=== PATIENT | male | born 1945 | race Caucasian/White ===

== ENCOUNTER 2024-05-20 00:29 | Inpatient (IN) | payer OTHER, SELFPAY ==
[2024-05-19] VITALS (10 sets, daily range): BP systolic 73–175; BP diastolic 34–105; BMI 26.7
[2024-05-19 22:23] LABS: % Basophils 0.8 % (0-2); % Eosinophils 2.9 % (0-6); % Immature Granulocytes 0.4 % (0-0.5); % Lymphocytes 24.5 % (20.5-51.1); % Monocytes 13.1 % (1.7-9.3); % Neutrophils 58.3 % (42.2-75.2); Absolute Basophils 0.1 10^3/uL (0-0.2); Absolute Eosinophils 0.2 10^3/uL (0-0.7); Absolute Lymphocytes 1.9 10^3/uL (1.2-3.4); Absolute Neutrophils 4.6 10^3/uL (1.4-6.5); Hematocrit 49.9 % (39.0-52.0); Hemoglobin 16.8 g/dL (13.0-18.0); Mean Corp Hgb Conc. 33.7 g/dL (33.0-37.0); Mean Corpuscular Hgb 29.5 pg (27.0-31.0); Mean Corpuscular Volume 87.5 fL (80.0-94.0); Mean Platelet Volume 8.5 fL (7.4-10.4); Nucleated Red Blood Cells % 0 % (-); Platelet Count 231 10^3/uL (130-400); Red Cell Dist. Width 12.9 % (11.5-14.5); White Blood Cell Count 7.9 10^3/uL (4.8-10.8)
--- NOTE | 2024-05-19 22:30 | ED.GENMED ---
History of Present Illness
General
Chief Complaint: Chest Pain
Source: patient and spouse
Exam Limitations: none
Time Seen by Provider: 05/19/24 22:13
Nursing documentation reviewed up to this point in time: agreed with
History of Present Illness
History of Present Illness:
The patient is a very pleasant 79-year-old man who has a history of hyperlipidemia and reports several days of chest tightness, cough and congestion. Patient reports he grew concerned because yesterday he noticed that the chest pain was only in the
left side of his chest and his left arm felt numb. Patient denies shortness of breath. He reports his chest tightness is dull and he rates it a 3 out of 10. Patient denies a history of hypertension and heart disease. He smoked 50 years ago.
Patient just flew back from [place] today after spending a week with family. He denies leg pain and leg swelling.
Past History
Past History
ED Past Medical History: Hypercholesterolemia
ED Past Surgical History: Other
Social History
Tobacco: Former smoker
Alcohol: None
Drug: None
Personal:
Living: with family
Employment: Retired
Family History
Family History: Other
Review of Systems
Review of Systems
Allergies reviewed?: Yes
All Other Systems: ROS reviewed and negative except as documented in HPI and ROS
Constitutional: Reports no symptoms
EENT: Reports no symptoms
Respiratory: Reports no symptoms
Cardiac: Reports chest pain
ABD/GI: Reports no symptoms
: Reports no symptoms
Musculoskeletal: Reports no symptoms
Skin: Reports no symptoms
Neurological: Reports no symptoms
Endocrine: Reports no symptoms
Hematologic/Lymphatic: Reports no symptoms
Psychiatric: Reports no symptoms
Phy Exam
Physical Exam
Physical Exam:
Physical Exam
General: no apparent distress, not acutely ill. Well appearing but slightly flushed
Neck: supple. no meningeal signs. normal psoterior pharynx
Heart: s1/s2 regular rate and rhythm, no murmur. equal radial pulses.
Lungs: no acute respiratory distress. clear bilaterally
Abdomen: normal bowel sounds. not tender. no CVAT
Neuro: alert and oriented. no focal neurological deficits
Skin: no rash
Psychiatric: well kept. interactive and cooperative
Extremities: no edema. no calf tenderness. negative homans. good distal pulses
Scores
Heart Score for Chest Pain Patients
STEMI patient?: Yes
Course
Orders/Labs/Results
Orders:
Orders
05/19/24 22:06
Electrocardiogram (*1) Urgent
Reason for Study: Chest Pain
EKG- Treatment ONCE
05/19/24 22:16
Complete Blood Count/With Diff Urgent
Comprehensive Metabolic Panel Urgent
Troponin I Urgent
Abnormal Lab Results
05/19/24
22:16
Absolute Monos (auto) 1.0 H 10^3/uL
(0.1-0.6)
Monocytes % 13.1 H %
(1.7-9.3)
05/19/24 22:16
MDM/Problems Addressed
Differential Diagnosis Includes:
STEMI, non-STEMI, pneumonia, PE
MDM/Problems Addressed:
Patient presents with acute chest pain
Chronic conditions affecting care:
Hyperlipidemia can increase the risk of acute coronary syndrome
Acute Exacerbation and/or Progression of Chronic Illness:
Patient is acutely hypertensive, however, he is anxious and has chest pain
Acute Exacerbation and/or Progression of Chronic Illness: HTN
*Pulse Oximetry
Patient hypoxic: no
*EKG
Interpreted by ED Provider?: Yes
Interpretation: abnormal
Comparison EKG: no comparison EKG present
Rate: normal
Rhythm: sinus
[place]: normal axis
Interval: normal interval
QRS Pattern: normal QRS
Ischemia: ST elevation
*Electric Installer Interpretation
Rate: normal
Interpretation: normal
Rhythm: sinus
*Critical Care Note
Total Time (30-74mins, 75-104mins- exclusive of procedures): 35 minutes of critical ca
comment:
35 minutes critical care given to patient including frequent reassessments of his chest pain and overall mental status. I also spent time speaking to cardiology and counseling the patient and
Data Reviewed
Source: patient and spouse
Patient Management
Discussion with other providers: Other (Dr. Ceja)
Escalation/DeEscalation of care consider admission/obs:
Given patient's chest pain and EKG findings of ST elevation in inferior leads, decision made to activate STEMI alert and bring patient to the [facility]
ED Attending Note
-
Portions of this chart may have been created with voice recognition software.� Occasional wrong word or��sound alike� substitutions may have occurred due to the inherent limitations of voice recognition software.
Discharge Plan
Departure
Patient Disposition: Admit
Date of Disposition: 05/19/24
Time of Disposition: 22:29
Admit to: mill laborer
Admit to doctor: Dr Butt
Presentation/result/management discussed w/ accepting MD/DO: Dr Butt
Patient with high blood pressure during this ER visit?: Yes
Condition: Fair
Discharge Problem:
STEMI
Referrals:
UNKNOWN - PT DOES,NOT KNOW [Family Provider] -
Interventions
Interventions:
*Risk Screen - Suicide Last Done: 05/19/24 22:27
*General Assessment Last Done: 05/19/24 22:27
*Neglect/Abuse Screening Last Done: 05/19/24 22:27
*ED COVID-19 Vaccine History Last Done: 05/19/24 22:27
ED- Cardiac Assessment Last Done: 05/19/24 22:28
Discharge Date and Time
Print Language: BRUNEIAN
--- NOTE | 2024-05-19 22:43 | HPS.HSE ---
Family Physician
-
Family Physician: NOT KNOW UNKNOWN - PT DOES
Chief Complaint
-
Chest Pain.
History of Present Illness
79 y/o male, recently returned from [place], presenting with chest pain for the past several days. The patient has a history of yearly pulmonary infection/irritation treated with albuterol and inhaled corticosteroids. Several days ago, he
began coughing and has had had intermittent chest pain. He believed this was the onset of his typical pulmonary syndrome and began treating with albuterol. His chest pain worsened and has become more persistent and now left sided. Because his
chest discomfort would not subside, he presented to ER. EKG in the ER is consistent with inferior STEMI. cheesemaking laborer was activated.
Medical History
Past Medical History
Past Medical History: Reports Asthma (Pulmonary syndrome.)
Past Surgical History: Reports Other (Hernia repair x4.)
Social History
Tobacco: Former Smoker
Alcohol: Occasional
Drug: None
Personal:
Living: With Family
Employment: Retired
Family History
Family History: Not pertinent
Allergies / Home Medications
Allergies reflects when Allergies were last updated in [facility].
Home Medications with original date entered in [employer]
Allergy/Medication List:
Home Medications
None.
Allergies:
NKDA.
Review of Systems
-
History Source: Patient and Family
Constitutional: Reports No Symptoms
EENT: Reports No Symptoms
Respiratory: Reports Cough
Cardiac: Reports Chest Pain
Abdomen/GI: Reports No Symptoms
: Reports No Symptoms
Musculoskeletal: Reports No Symptoms
Physical Exam
Physical Exam
General: Well Developed, Well Nourished, No Apparent Distress, Comfortable, Conversant and Good Appetite
HEENT: NormoCephalic, Anicteric, Moist mucous membranes, Atraumatic, Good Dentition, PERRLA, [place] Conjunctivae, No Ptosis, Nose Appears Normal and Ears Appear Normal
Respiratory: Clear and Non Labored Respirations
Cardiac: S1/S2 and Regular Rhythm
Breast: Deferred by me
GI: Non Tender, Non Distended and Normal Bowel Sounds
Rectal: Deferred by Provider
Genito-urinary: Deferred by me
Musculoskeletal: No Clubbing, No Cyanosis and No Edema
Skin: Warm and Dry
Neuro: AO x 3, No Motor Deficits and Nonfocal/grossly intact
Hematologic/Lymphatic: No Lymphadenopathy
Psych: Calm and Intact Judgment/Insight
Laboratory Results
-
05/19/24 22:16
Data Reviewed
-
Medical Tests (Nuc Med, Echo, EKG etc): Image Personally Visualized and interpreted, Report Reviewed by me and Discussed with Physician
Lab Data: Labs Reviewed by me
Old Records: Reviewed
Impression/Plan
-
IMPRESSION/PLAN: 79 y/o otherwise healthy male presenting with chest pain and inferior ST elevation on EKG consistent with inferior STEMI.
#STEMI
-Acute.
-cheesemaking laborer activated.
-Patient received appropriate medication in ER (heparin, aspirin, ticagrelor).
-Emergent cardiac catheterization with ad hoc PCI.
-Risks/benefits explained. Consent is signed and on the chart.
-Further instructions to follow.
[2024-05-19 22:44] LABS: ALT (SGPT) 29 U/L (0-50); AST (SGOT) 33 U/L (17-59); Albumin 4.5 g/dl (3.5-5.0); Alkaline Phosphatase 60 U/L (38-126); Blood Urea Nitrogen 20 mg/dl (9-20); Calcium 9.4 mg/dl (8.4-10.2); Carbon Dioxide 25 mmol/L (22-30); Chloride 104 mmol/L (98-107); Estimated Creatinine Clearance 62 ml/min; Glucose 113 mg/dl (70-99); Potassium 4.1 mmol/L (3.5-5.1); Sodium 138 mmol/L (135-145); Total Bilirubin 0.6 mg/dl (0.2-1.3); Total Protein 7.2 g/dl (6.3-8.2); eGFR > 60.00
[2024-05-19 23:23] LABS: ACT-LR - POC 334 Seconds (116-155)
[2024-05-20] VITALS (13 sets, daily range): BP systolic 95–142; BP diastolic 55–94; BMI 26.8; BMI 26.7
[2024-05-20 00:18] LABS: ACT-LR - POC 316 Seconds (116-155)
--- NOTE | 2024-05-20 00:21 | ITS.CL.ANGIO ---
Dump Motor Operator - Angioplasty
Angioplasty
Procedure Report:
CARDIAC CATHETERIZATION REPORT
Date of Procedure: 05/19/2024
Referring: [facility] emergency room.
INDICATION: Inferior ST elevation myocardial infarction.
PROCEDURE:
1. Left heart catheterization
2. Coronary angiography.
3. Successful PCI of the proximal, mid and distal RCA.
A total of 75 minutes of procedural/moderate sedation was utilized. An independent lpn medical assistant was present to assist with and help manage the patient's level of consciousness and physiologic status.
ACCESS:
1. 6 Stateless right radial artery using a modified Seldinger technique.
CATHETERS:
1. 5 Stateless JR4.
2. 5 Stateless JL 3.5.
3. 6 Stateless JR4 guiding catheter.
HEMODYNAMIC DATA
Weight (kg): 81.6
AO (s/d/x, mmHg): 105/69/84
LV (s/x mmHg): 105/10
LEFT VENTRICULOGRAPHY: Not performed.
CORONARY ANGIOGRAPHY
Dominance: Right.
Left Main: Normal size, bifurcating vessel. There is no coronary artery disease.
LAD: Large size vessel giving rise to 3 diagonals. There is a long, 40% lesion in the proximal LAD spanning the origin of D1 and D2. There are minor luminal irregularities elsewhere.
Ramus: Congenitally absent.
Circumflex: Normal size, nondominant vessel giving rise to 2 obtuse marginals. OM1 is chronically totally occluded at its origin and fills via left to left collaterals from the distal LAD and diagonals. OM 2 is a small, 1 mm vessel.
RCA: Large size, dominant vessel with a large posterolateral arcade supplying almost the entire inferolateral and lateral wall. There are 70% lesions in the proximal LAD and again in the mid LAD. This is followed by a critical, 95% subtotal
occlusion of the distal RCA immediately proximal to the bifurcation of the RPDA and RPL with ALLYN II flow.
INTERVENTION(S)
1. Successful PCI of the 99% subtotal culprit lesion distal RCA (Medtronic [place] 3.0 x 38 RADHA, postdilated with a 3.0 NC balloon) with reduction in stenosis to 0%, restoring ALLYN-3 flow.
2. Successful PCI of the 70% mid RCA lesion (Medtronic [place] 3.0 x 18 RADHA, overlapping with the distal RCA stent, postdilated with a 3.0 NC balloon) with reduction in stenosis to 0%, maintaining ALLYN-3 flow.
3. Successful PCI of the 70% proximal RCA lesion (Medtronic [place] 3.0 x 22 RADHA, overlapping with the mid RCA stent, postdilated with a 3.5 NC balloon) with reduction in stenosis to 0%, maintaining ALLYN-3 flow.
Narrative:
The decision was made to proceed with percutaneous coronary intervention. The diagnostic catheter was removed over a wire and a 6Fr JR4 guiding catheter was advanced to the aortic root and seated in the right coronary artery. Additional heparin was
given and a Power Turn Flex wire was advanced into the distal RCA by the crux. Unfortunately, the power turn flex wire would not cross the lesion and was continuously buckling. The decision was made to proceed with a different wire. A whisper
wire was advanced with a mini microcatheter. With some difficulty, the whisper wire was advanced into the RPDA. The mini catheter was removed. The 95% distal RCA lesion was predilated with a 2.0 x 12 semi-compliant balloon to 12 lamar. This
restored ALLYN III flow and revealed that the RPL was a larger branch than the RPDA. A new power turn Flex wire was advanced into the RCA and into the RPL. The whisper wire was maintained in position to protect the RPDA. A 3.0 x 15 semicompliant
balloon was advanced over the power turn flex wire and the distal RCA around the crux was predilated to 8 lamar. The semi-compliant balloon was removed and a Medtronic [place] 3.0 x 38 drug-eluting stent was advanced. Unfortunately, this stent
would not pass into the distal artery.
The stent was removed and a 6 Stateless guide liner was advanced over both wires and into the proximal RCA. The GuideLiner was advanced over the 3.0 x 15 balloon. Unfortunately, this balloon was now winged and would not pass into the distal RCA. The
3.0 x 15 balloon was withdrawn and the 2.0 x 12 semicompliant balloon was readvanced into the distal RCA. The balloon was inflated to 12 lamar and the lesion as an anchor. Unfortunately, even with an anchor the GuideLiner would not advance beyond
the mid RCA. Pressure tracings showed pressure dampening, confirming that the proximal and mid RCA lesions were occlusive. The 2.0 x 12 semicompliant balloon was withdrawn and a fresh 3.0 x 12 semicompliant balloon was advanced into the distal RCA
lesion. The lesion was predilated again to 12 lamar. With this more aggressive balloon in place, the GuideLiner was advanced into the distal RCA with relative ease.
With the GuideLiner in place, the semicompliant balloon was deflated and the stent was readvanced. This time, the stent advanced into the RPL without issue. The GuideLiner was pulled back into the mid RCA to allow for appropriate positioning.
Once we were satisfied that the entire lesion was covered, the stent was deployed at 12 atmospheres, jailing the origin of the RPDA. The stent balloon was removed. Repeat angiography was performed, confirming that the RPDA remained patent.
We then turned our attention to the mid RCA lesion. A Medtronic [place] 3.0 x 18 RADHA was advanced through the GuideLiner and into the proximal margin of the distal stent. Once again, the GuideLiner was pulled back to allow for full stent
expansion. Meticulous care was taken while positioning the stent, ensuring that the distal margin of the undeployed stent was overlapping with the proximal margin of the distal RCA stent. When we were satisfied with positioning, the stent was
deployed at 12 lamar. The stent balloon was withdrawn.
A 3.0 x 12 noncompliant balloon was advanced into the distal stent and the entire distal and mid RCA stented segment was postdilated to 14 atmospheres.
While we were satisfied with the results in the mid and distal RCA, there was still catheter dampening on the pressure waveform and a significant, 70% lesion in the proximal RCA extending back to near the ostium but not involving the ostium. The
decision was made to treat this lesion as well. A Medtronic [place] 3.0 x 22 drug-eluting stent was advanced. Once again, we took meticulous care with positioning of the stent, ensuring good overlap with the mid RCA stent while ensuring that
the entire proximal RCA lesion was covered. The stent was deployed at 12 lamar. The stent balloon was withdrawn and the 3.0 x 12 NC balloon was advanced. The entire stent length was dilated to 14 lamar. The noncompliant balloon was withdrawn and a
3.5 x 12 noncompliant balloon was advanced. The proximal margin of the proximal stent was dilated to 15 lamar. The noncompliant balloon was removed.
Angiography was performed in orthogonal views, confirming good stent expansion and an excellent angiographic result. The coronary wire was withdrawn and the guide was disengaged from the artery. The catheter was removed over a standard J-wire.
Closure Device: Vascular band.
Radiation (mGy): 1430.44
DAP (cm2.Gy): 74.0968
Fluoroscopy time (minutes): 27.0
CONCLUSIONS
1. 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
lesions and a culprit, 95% lesion in the distal RCA immediately proximal to the bifurcation of the RPDA and RPL.
2. Status post successful PCI of the distal, mid and proximal RCA (overlapping Medtronic [place] 3.0 x 38 RADHA, 3.0 x 18 RADHA, 3.0 x 22 RADHA, postdilated with a 3.0 NC balloon throughout and a 3.5 x 12 NC balloon in the proximal margin) with
reduction in all RCA stenoses to 0%, restoring ALLYN-3 flow.
3. Normal filling pressures (LVEDP = 10 mmHg at 81.6 kg).
RECOMMENDATIONS:
1. Expectant management after cardiac catheterization via right radial approach.
2. Limited weight bearing on the right wrist for one week.
3. Dual antiplatelet therapy with aspirin and ticagrelor for at least 12 months, followed by aspirin indefinitely.
4. Aggressive secondary prevention with high-dose, high potency statin.
5. Guideline directed medical therapy as hemodynamics will tolerate.
6. Echocardiogram ordered and pending.
7. Referral to cardiac rehab.
Copy to: Nathalia Joe PA-C
Juanjose Butt DO, FACC, FACP
--- NOTE | 2024-05-20 06:34 | PTCARENOTE ---
Pt admitted to rm 2251 post cath. AAOx3 VSS. Pt denies any chest pain or SOB. Pt oriented to room, call christiansen in reach. pt instructed on restriction post cath.
[2024-05-20 06:58] LABS: Hematocrit 42.7 % (39.0-52.0); Mean Corp Hgb Conc. 35.1 g/dL (33.0-37.0); Mean Corpuscular Hgb 30.2 pg (27.0-31.0); Mean Corpuscular Volume 86.1 fL (80.0-94.0); Mean Platelet Volume 8.8 fL (7.4-10.4); Platelet Count 184 10^3/uL (130-400); Red Blood Cell Count 4.96 10^6/uL (4.70-6.10); Red Cell Dist. Width 12.8 % (11.5-14.5); White Blood Cell Count 7.6 10^3/uL (4.8-10.8)
[2024-05-20 07:17] LABS: Blood Urea Nitrogen 17 mg/dl (9-20); Calcium 8.6 mg/dl (8.4-10.2); Carbon Dioxide 21 mmol/L (22-30); Chloride 108 mmol/L (98-107); Estimated Creatinine Clearance 69 ml/min; Glucose 114 mg/dl (70-99); Sodium 139 mmol/L (135-145); eGFR > 60.00
[2024-05-20] MEDS: BRILINTA 90 MG PO ×2 (07:59→20:08)
[2024-05-20] MEDS: LOW STRENGTH ASPIRIN 81 MG PO (07:59)
[2024-05-20] MEDS: TOPROL XL 25 MG PO (08:04)
[2024-05-20 08:22] LABS: ACT-LR - POC > 397 Seconds (116-155)
--- NOTE | 2024-05-20 09:27 | W.PN.CD ---
Today's Communication / Plan
-
DAPT.
Echo.
Lipid panel pending.
Referral to cardiac rehab.
Impression / Plan
-
Impression/Plan: 79 y/o male admitted with inferior STEMI.
#STEMI
-Acute.
-Troponin up to 16.2.
-S/P PCI to culprit 95% distal RCA lesion as well as tandem 70% mid and proximal RCA lesions (overlapping Medtronic [place] 3.0 x 38 RADHA, 3.0 x 18 RADHA, 3.0 x 22 RADHA, postdilated with a 3.0 NC balloon throughout and a 3.5 x 12 NC balloon in
the proximal margin).
-DAPT with aspirin and ticagrelor for 12 months, followed by aspirin indefinitely.
-Starting metoprolol and rosuvastatin. He reports prior intolerance of atorvastatin.
-Echocardiogram ordered and pending.
-HbA1c and lipid panel pending.
-Referral to cardiac rehab.
#CAD
-Chronic.
-Residual VENEER MEASURER of OM1 and 40% pLAD lesion.
-Medical management with beta tana, high dose statin.
Subjective/Interval History:
STEMI last night.
Extensive PCI of the entire RCA.
Chest pain resolved.
Feels well this morning.
Assuming care from [facility] (remote consultation) at the request of Dr. Mtz.
DATA:
Cardiac Catheterization/PCI, 05/20/2024:
CONCLUSIONS
1. 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
lesions and a culprit, 95% lesion in the distal RCA immediately proximal to the bifurcation of the RPDA and RPL.
2. Status post successful PCI of the distal, mid and proximal RCA (overlapping Medtronic [place] 3.0 x 38 RADHA, 3.0 x 18 RADHA, 3.0 x 22 RADHA, postdilated with a 3.0 NC balloon throughout and a 3.5 x 12 NC balloon in the proximal margin) with
reduction in all RCA stenoses to 0%, restoring ALLYN-3 flow.
3. Normal filling pressures (LVEDP = 10 mmHg at 81.6 kg).
Physical Exam
Vital Signs/Labs
Vital Signs
Temp Pulse Resp BP Pulse Ox
36.5 C 66 20 95/60 97
05/20/24 07:00 05/20/24 08:15 05/20/24 07:00 05/20/24 08:00 05/20/24 08:00
05/18/24 05/19/24 05/20/24
11:59 11:59 11:59
Actual Weight 81.9 kg
05/20/24 06:19
05/20/24 06:19
LAB Results
05/19/24 05/20/24 05/20/24
22:16 00:48 06:19
Troponin I 0.030 2.780 H* D 16.200 H* D
Physical Exam
Constitutional: No acute distress and Comfortable
EENT: Anicteric and Moist mucous membranes
Cardiovascular: Rhythm & rate is regular, Pedal edema is absent, JVD pressure is normal, S1S2 is normal and Murmur/rub/gallop absent
Respiratory: Respiratory effort normal, Lungs clear to auscul., Wheeze Absent, Crackles Absent and Rhonchi Absent
GI: Soft, Distention absent, Flat, Non tender and Normal bowel sounds
Neuro/Psych: AO x 3
Other: Cath Site (Right radial access site is C/D/I.)
Data Reviewed
-
Date of Service: May 20, 2024
Medical Decision Making: Reviewed Test Results, Independent Historian Assessment and Test Interpretation
EKG: Tracing Personally Visualized and interpreted and Report Reviewed by me
Echo: Ordered by me
Medical Tests (PFT, Pathology etc): Image Personally Visualized and interpreted, Report Reviewed by me, Discussed with Physician, Discussed with Patient and Discussed with Family
Labs: Labs Reviewed by me
Old Records: Reviewed
--- NOTE | 2024-05-20 11:34 | CM ---
Chart reviewed. Patient is independent of ADLS, lives with his in a [address], 2 [address], 0 DME. Plan is for the patient to return home. CM to follow
--- NOTE | 2024-05-20 11:35 | CM ---
Pricing on Brilinta through the patient's prescription plan is $112. It is available at the patient's [facility]. Patient is agreeable to cost. I will place a free 30 day coupon in the patient's red discharge folder.
[2024-05-20 11:57] LABS: Glycohemoglobin (HgbA1c) 5.4 % (4.0-5.6)
[2024-05-20] MEDS: CRESTOR 20 MG PO (17:29)
[2024-05-20] MEDS: LOVENOX 40 MG SC (17:30)
--- NOTE | 2024-05-20 18:00 | PTCARENOTE ---
Pt received this am with no c/o of any chest pain or sob. Right rad site WNL. OOB ad gina in the room. Room air sat 98%.
[2024-05-20] MEDS: NON-FORMULARY ITEM 1 UNIT INH (22:36)
[2024-05-21 04:50] VITALS: BP 94/57
[2024-05-21 05:21] LABS: Hematocrit 44.7 % (39.0-52.0); Mean Corp Hgb Conc. 33.6 g/dL (33.0-37.0); Mean Corpuscular Volume 89.4 fL (80.0-94.0); Mean Platelet Volume 8.7 fL (7.4-10.4); Platelet Count 189 10^3/uL (130-400); Red Cell Dist. Width 13.1 % (11.5-14.5); White Blood Cell Count 7.8 10^3/uL (4.8-10.8)
--- NOTE | 2024-05-21 05:26 | PTCARENOTE ---
patient slept well overnight. denies any cp/sob. SB/SR on tele 50s-60s. ambulating to the BR independently. r radial site intact. ACS med list provided/highlighted new medications. questions answered. eager to go home. call christiansen within reach.
[2024-05-21 05:38] LABS: Blood Urea Nitrogen 17 mg/dl (9-20); Calcium 8.8 mg/dl (8.4-10.2); Carbon Dioxide 23 mmol/L (22-30); Chloride 107 mmol/L (98-107); Estimated Creatinine Clearance 62 ml/min; Glucose 102 mg/dl (70-99); HDL Cholesterol 37 mg/dl; LDL Cholesterol, Calculated 104 mg/dl; Potassium 4.2 mmol/L (3.5-5.1); Sodium 137 mmol/L (135-145); Total Cholesterol 165 mg/dl (50-199); Triglyceride 122 mg/dl (10-149); Very Low Density Lipoprotein 24 mg/dl (0-30); eGFR > 60.00
[2024-05-21 06:00] VITALS: BMI 26.8
[2024-05-21 07:40] VITALS: BP 107/62
[2024-05-21] MEDS: TOPROL XL 25 MG PO (09:16)
[2024-05-21] MEDS: BRILINTA 90 MG PO ×2 (09:17→19:32)
[2024-05-21] MEDS: LOW STRENGTH ASPIRIN 81 MG PO (09:17)
[2024-05-21] MEDS: NON-FORMULARY ITEM 1 UNIT INH (09:19)
--- NOTE | 2024-05-21 09:37 | W.PN.CD ---
Addendum entered and electronically signed by Sarkis Oh MD 05/21/24 14:00:
I saw and examined the patient.
The LIBRARY CLERK's note was reviewed and I agree with the note.
Comment: Tele good. No CP. Cath site very good. Cardiac rehab as seen pt. Med adherence discussed. Likely home tomorrow.
Original Note:
Today's Communication / Plan
-
Ambulate
Monitor tele
Consider d/c tomorrow if remains stable.
Impression / Plan
-
Impression/Plan: 79 y/o male admitted with inferior STEMI.
#STEMI
- Peak [id number].
-S/P PCI to culprit 95% distal RCA lesion as well as tandem 70% mid and proximal RCA lesions (overlapping [employer] [place] 3.0 x 38 RADHA, 3.0 x 18 RADHA, 3.0 x 22 RADHA, postdilated with a 3.0 NC balloon
throughout and a 3.5 x 12 NC balloon in the proximal margin).
-DAPT with aspirin and ticagrelor for 12 months, followed by aspirin indefinitely.
- He reports prior intolerance of atorvastatin. Rosuvastatin added here
-Echo 05/20/24 Normal biventricular size and systolic function without regional wall motion abnormality. Mild aortic regurgitation.
#CAD
-Chronic.
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
-Medical management with beta tana, high dose statin.
Subjective/Interval History:
Pt feels well. No recurrent angina . No issues with R radial site.
DATA:
Cardiac Catheterization/PCI, 05/20/2024:
CONCLUSIONS
1. 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
lesions and a culprit, 95% lesion in the distal RCA immediately proximal to the bifurcation of the RPDA and RPL.
2. Status post successful PCI of the distal, mid and proximal RCA (overlapping [employer]tr[employer] [place] 3.0 x 38 RADHA, 3.0 x 18 RADHA, 3.0 x 22 RADHA, postdilated with a 3.0 NC balloon throughout and a 3.5 x 12 NC balloon in the proximal margin) with
reduction in all RCA stenoses to 0%, restoring ALLYN-3 flow.
3. Normal filling pressures (LVEDP = 10 mmHg at 81.6 kg).
Physical Exam
Vital Signs/Labs
Vital Signs
Temp Pulse Resp BP Pulse Ox
98.4 F 73 18 107/62 95
05/21/24 07:38 05/21/24 09:16 05/21/24 07:38 05/21/24 09:16 05/21/24 07:38
05/20/24 05/21/24 05/22/24
06:59 06:59 06:59
Actual Weight 81.9 kg
05/21/24 04:51
05/21/24 04:51
Triglycerides 122 mg/dl (10-149) 05/21/24 04:51
LDL Cholesterol, Calc 104 mg/dl 05/21/24 04:51
VLDL Cholesterol, Calc 24 mg/dl (0-30) 05/21/24 04:51
HDL Cholesterol 37 mg/dl 05/21/24 04:51
LAB Results
05/19/24 05/20/24 05/20/24
22:16 00:48 06:19
Troponin I 0.030 2.780 H* D 16.200 H* D
05/20/24 05/20/24
12:33 18:30
Troponin I 9.520 H* D Cancelled
Physical Exam
Constitutional: No acute distress
Cardiovascular: Rhythm & rate is regular and Pedal edema is absent
Respiratory: Respiratory effort normal and Lungs clear to auscul.
Neuro/Psych: AO x 3
Other: Cath Site (R radial , no hematoma , there is a palpable R radial pulse. )
Data Reviewed
-
Date of Service: May 21, 2024
EKG: Tracing Personally Visualized and interpreted (SB 59 bpm,PCV, PAC) and Other (Tele: NSR)
Echo: Tracing Personally Visualized and interpreted (05/20/24 Normal biventricular size and systolic function without regional wall motion abnormality. Mild aortic regurgitation.)
Labs: Labs Reviewed by me
--- NOTE | 2024-05-21 09:52 | PTCARENOTE ---
pt continues to be sr on the monitor, hr in the 70s, vss. pt offers no complaints at this time. pt ambulating through the halls and tolerating well. pt educated on plan of care and pt verbalized understanding. call christiansen within reach.
[2024-05-21 12:01] VITALS: BP 95/68
[2024-05-21 16:40] VITALS: BP 121/91
[2024-05-21] MEDS: CRESTOR 20 MG PO (17:47)
[2024-05-21] MEDS: LOVENOX 40 MG SC (17:47)
--- NOTE | 2024-05-21 18:21 | PTCARENOTE ---
pt continues to be sr on the monitor, hr in 60s, vss. pt offers no complaints at this time. right radial is CDI. pt educated on plan of care and pt verbalized understanding. pt ambulating the halls and tolerating well. call christiansen within reach.
[2024-05-21 19:29] VITALS: BP 129/83
[2024-05-21 22:12] VITALS: BP 145/86
--- NOTE | 2024-05-21 22:33 | PTCARENOTE ---
patient resting in bed comfortably. ambulating in the room independently. SB/SR on tele 50s-60s. bp stable. denies any cp/sob. R radial site LEONA/intact. educated patient to inform RN with any changes overnight. call christiansen within reach.
[2024-05-22 04:46] VITALS: BP 109/64
[2024-05-22 05:25] LABS: Hemoglobin 15.3 g/dL (13.0-18.0); Mean Corp Hgb Conc. 34.8 g/dL (33.0-37.0); Mean Corpuscular Hgb 30.2 pg (27.0-31.0); Mean Corpuscular Volume 86.8 fL (80.0-94.0); Mean Platelet Volume 8.7 fL (7.4-10.4); Platelet Count 189 10^3/uL (130-400); Red Blood Cell Count 5.07 10^6/uL (4.70-6.10); Red Cell Dist. Width 12.9 % (11.5-14.5); White Blood Cell Count 7.8 10^3/uL (4.8-10.8)
[2024-05-22 05:51] LABS: Blood Urea Nitrogen 18 mg/dl (9-20); Calcium 8.9 mg/dl (8.4-10.2); Carbon Dioxide 21 mmol/L (22-30); Chloride 107 mmol/L (98-107); Estimated Creatinine Clearance 62 ml/min; Glucose 94 mg/dl (70-99); Sodium 138 mmol/L (135-145); eGFR > 60.00
[2024-05-22 06:00] VITALS: BMI 26.6
[2024-05-22 07:05] VITALS: BP 116/83
[2024-05-22] MEDS: TOPROL XL 25 MG PO (08:07)
[2024-05-22] MEDS: LOW STRENGTH ASPIRIN 81 MG PO (08:07)
[2024-05-22] MEDS: BRILINTA 90 MG PO (08:07)
--- NOTE | 2024-05-22 09:27 | W.DS.TRANS ---
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
-
Discharge Instructions:
Discharge Diagnosis/Procedures Inferior STEMI
Procedure 05/19/2024: PCI to distal RCA, mid and
proximal RCA lesions
Diet Low Cholesterol
Activity No strenuous activity
Additional Activity See attached instructions.
Driving Restrictions As prior to admission
Bathing Restrictions None
Other Services Cardiac Rehab
Instructions:
Stand-Alone Forms: DC Instructions- Cath/EP Lab
Changes to Home Medications: Yes
Discharge Medications:
DC Medications w/original date entered in [facility]
Multi-Vitamin Supplement 05/20/24
PreserVision AREDS Supplement 05/20/24
omeprazole 20 mg PO DAILY Gastrointestinal Issue 05/20/24
ticagrelor 90 mg tablet (Brilinta) 90 mg PO BID #60 tabs 05/20/24
aspirin 81 mg chewable tablet 81 mg PO DAILY #30 tabs 05/21/24
metoprolol succinate 25 mg tablet,extended release 24 hr 25 mg PO DAILY #30 tabs 05/21/24
rosuvastatin 20 mg tablet 20 mg PO QPM #30 tabs 05/21/24
Home Medication Changes
All medications are NEW
Pending Results: No
--- NOTE | 2024-05-22 09:28 | W.PN.UPDATE ---
Update Note
Progress Note Update
Pt seen and examined. Tele unremarkable. Lungs clear, cath site good. Pt educated about CAD, med adherence importance, cardiac rehab by me this morning. All questions answered. Home.
[2024-05-22 10:17] VITALS: BP 111/70
--- NOTE | 2024-05-22 11:12 | PTCARENOTE ---
Pt denies any discomfort, seen by . Telemetry and IV device removed. Discharge instructions reviewed with pt and his regarding activity guidelines, wound care, medications and their possible side effects, reporting cares and concerns
and follow up appt's. Excellent understanding taught back to this RN. Pt escorted out via wheel chair with all his belongings and discharged to home.
== END 2024-05-22 11:10 | disposition home or self-care (01) | DRG 322 ==
LOC: IVU 00:29
PROVIDERS: Student in an Organized Health Care Education/Training Program; ADMITTING PHYSICIAN Internal Medicine Cardiovascular Disease; EMERGENCY PHYSICIAN Emergency Medicine
PROC: 4A023N7 Measurement of Cardiac Sampling and Pressure, Left Heart, Percutaneous Approach (ICD-10-PCS; 2024-05-20)
PROC: B2111ZZ Fluoroscopy of Multiple Coronary Arteries using Low Osmolar Contrast (ICD-10-PCS; 2024-05-20)
PROC: 027036Z Dilation of Coronary Artery, One Artery with Three Drug-eluting Intraluminal Devices, Percutaneous Approach (ICD-10-PCS; 2024-05-20)
DX: I21.19 ST elevation (STEMI) myocardial infarction involving other coronary artery of inferior wall (principal); I25.10 Atherosclerotic heart disease of native coronary artery without angina pectoris; J45.909 Unspecified asthma, uncomplicated; E78.00 Pure hypercholesterolemia, unspecified; Z87.891 Personal history of nicotine dependence
CPT/HCPCS: 80048; 80053; 80061; 83036; 84484; 85025; 85027; 85347; 93005; 93306; 93458; 94640; 99152; 99153; 99291; C1725; C1769; C1874; C1894; C9606; Q9967

== ENCOUNTER 2024-07-07 09:59 | Outpatient (RCR) | payer OTHER, SELFPAY | END 2024-07-07 23:59 | disposition home or self-care (01) | LOC: CRHB 09:59 | PROVIDERS: ATTENDING PHYSICIAN Internal Medicine Cardiovascular Disease | DX: I21.01 ST elevation (STEMI) myocardial infarction involving left main coronary artery (principal); I25.2 Old myocardial infarction (principal); Z95.5 Presence of coronary angioplasty implant and graft; I25.10 Atherosclerotic heart disease of native coronary artery without angina pectoris | CPT/HCPCS: 93797; 93798; G0422; G0423 ==

== ENCOUNTER 2024-08-08 16:15 | Outpatient (RCR) | payer OTHER, SELFPAY | END 2024-08-08 23:59 | disposition home or self-care (01) | LOC: CRHB 16:15 | PROVIDERS: ATTENDING PHYSICIAN Internal Medicine Cardiovascular Disease | DX: I21.01 ST elevation (STEMI) myocardial infarction involving left main coronary artery (principal); I25.10 Atherosclerotic heart disease of native coronary artery without angina pectoris (principal); Z95.5 Presence of coronary angioplasty implant and graft; I25.2 Old myocardial infarction | CPT/HCPCS: G0422; G0423 ==

== ENCOUNTER 2024-09-02 08:44 | Outpatient (RCR) | payer OTHER, SELFPAY ==
[2024-08-15 08:54] LABS: HDL Cholesterol 46 mg/dl; LDL Cholesterol, Calculated 45 mg/dl; Total Cholesterol 108 mg/dl (50-199); Triglyceride 86 mg/dl (10-149); Very Low Density Lipoprotein 17 mg/dl (0-30)
== END 2024-09-05 15:07 | disposition home or self-care (01) ==
LOC: CRHB 08:44
PROVIDERS: ATTENDING PHYSICIAN Internal Medicine Cardiovascular Disease; FAMILY PHYSICIAN Student in an Organized Health Care Education/Training Program
DX: I21.01 ST elevation (STEMI) myocardial infarction involving left main coronary artery (principal); Z95.5 Presence of coronary angioplasty implant and graft; I25.10 Atherosclerotic heart disease of native coronary artery without angina pectoris; I25.2 Old myocardial infarction
CPT/HCPCS: 36415; 80061; G0422; G0423

== ENCOUNTER 2025-03-14 22:25 | Emergency (ER) | payer OTHER, SELFPAY ==
[2025-03-14 22:38] VITALS: BP 137/81
[2025-03-14 22:53] LABS: Hematocrit 44.9 % (39.0-52.0); Hemoglobin 15.4 g/dL (13.0-18.0); Mean Corp Hgb Conc. 34.3 g/dL (33.0-37.0); Mean Corpuscular Volume 86.0 fL (80.0-94.0); Nucleated Red Blood Cells % 0 % (-); Platelet Count 206 10^3/uL (130-400); Red Cell Dist. Width 13.3 % (11.5-14.5)
[2025-03-14 23:03] LABS: APTT 31.5 Sec (23.4-35.0)
[2025-03-14 23:07] LABS: ALT (SGPT) 30 U/L (0-50); AST (SGOT) 35 U/L (17-59); Albumin 4.5 g/dl (3.5-5.0); Alkaline Phosphatase 48 U/L (38-126); Blood Urea Nitrogen 23 mg/dl (9-20); Calcium 9.8 mg/dl (8.4-10.2); Carbon Dioxide 22 mmol/L (22-30); Chloride 105 mmol/L (98-107); Glucose 112 mg/dl (70-99); Potassium 4.1 mmol/L (3.5-5.1); Sodium 133 mmol/L (135-145); Total Protein 7.2 g/dl (6.3-8.2); eGFR > 60.00
[2025-03-14 23:17] LABS: Troponin I 0.013 ng/ml
[2025-03-14 23:24] VITALS: BP 116/76; BMI 26.1
[2025-03-15] VITALS: BP 113/75
[2025-03-15 01:00] VITALS: BP 105/78
--- NOTE | 2025-03-15 01:12 | ED.GENMED ---
History of Present Illness
General
Chief Complaint: Cardiac Symptoms
Source: patient
Exam Limitations: none
Time Seen by Provider: 03/15/25 01:10
Nursing documentation reviewed up to this point in time: agreed with
History of Present Illness
History of Present Illness:
Note:
CHIEF COMPLAINT(S)
- Unexplained bruising
- Chest discomfort
HISTORY OF PRESENT ILLNESS
The patient is a 80-year-old male with a pmh of ACS,history of chest discomfort and unexplained bruising. The patient noted the sudden appearance of a bruise while watching TV, without recalling any trauma or impact. He reports wearing long sleeves
during the day and did not notice the bruise until preparing for bed, suggesting the bruise appeared rapidly. The bruise is noted to be large, yet not associated with any significant pain�described more as tenderness upon pressure. The patient has
been taking aspirin and Brilinta (ticagrelor) since May, medications known for their anticoagulant effects, which may contribute to spontaneous hematoma formation.
The patient also reports intermittent chest discomfort, primarily triggered by stress rather than physical exertion. This discomfort, which the patient prefers to describe as discomfort rather than pain, has been more frequent over the past few
days. He uses nitroglycerin for relief, with today�s consumption being above his typical usage.
The patient has a history of trauma from a hit below the collarbone a few weeks ago, resulting in a bruise that has since resolved. However, the current bruise does not seem related to this past injury. There is no current shortness of breath or
swelling in the legs reported, and physical activity is well tolerated.
ADDITIONAL HISTORY OBTAINED FROM SOURCES OTHER THAN THE PATIENT
- None mentioned.
CHRONIC MEDICAL CONDITIONS SIGNIFICANTLY AFFECTING CARE
- The patient is on aspirin and Brilinta (ticagrelor), indicating potential management of a cardiovascular condition.
REVIEW OF SYSTEMS
- Cardiovascular: Intermittent chest discomfort, triggered by stress, alleviated by nitroglycerin.
- Integumentary: Sudden, large bruise noticed without known trauma, tender to touch.
- Musculoskeletal: No significant pain associated with the bruising.
PHYSICAL EXAM
General: Alert, no acute distress.
Skin: Large, tender bruise identified; warm, dry.
Cardiovascular: Normal peripheral perfusion, No edema.
Respiratory: Respirations are non-labored.
Gastrointestinal: Abdomen nondistended.
Musculoskeletal: Normal ROM, normal strength.
Neurological: Alert and oriented to person, place, time, and situation, no focal neurological deficit observed.
Psychiatric: Cooperative, appropriate mood & affect.
PROBLEM LIST
Acute:
- Unexplained large bruise
- Increased frequency of chest discomfort
PLAN
- Perform a repeat blood test to check troponin levels due to increased frequency of chest discomfort, ensuring there is no acute cardiac injury.
- Conduct a chest X-ray to rule out any underlying issues contributing to the discomfort or related to previous trauma.
- Maintain cardiac monitoring to observe any changes in cardiac status.
- The patient is advised to continue current medication regimen and to monitor and report any changes in symptoms.
DIFFERENTIAL DIAGNOSIS
The Differential Diagnosis includes, in no particular order and is not limited to:
- Spontaneous hematoma secondary to anticoagulant therapy
- Angina pectoris
- Stress-induced cardiomyopathy
- Subcutaneous bleeding without obvious trauma
- Cardiomyopathy
- Coagulopathy from medication
- Hypertensive heart disease
- Myocardial infarction
- Deep vein thrombosis (unlikely given lack of symptoms)
- Hematological disorder (e.g., thrombocytopenia)
CHART REVIEW
Reviewed [facility], reviewed discharge summary from 05/27/2024 patient seen for inferior ST elevation RI
MDM/DISPOSITION
72-year-old male with past medical history of ACS, on aspirin and Plavix, presents to ER today with concerns of ecchymosis noted to his left anterior forearm. This seemed to happen spontaneously does not recall any inciting trauma. He denies any
pain over the area. Also, he has also noted some intermittent chest pains which he does have angina and does take nitro at baseline. He reports that he had to take an extra dose of nitro today that he usually does. On physical exam he is
well-appearing no acute distress. His left upper extremity is neurovascularly intact. There is a large area of ecchymosis but no signs of a large hematoma causing neurovascular compromise. Evaluated patient with ED attending at bedside.
Recommended elevation and Manish wrap's. Patient will follow-up with PCP. He also had 2 normal troponins and his ECGs were nonischemic. No acute findings on chest x-ray. Patient stable for discharge. Discussed follow-up with cardiology.
Past History
Past History
ED Past Medical History: Hypercholesterolemia
ED Past Surgical History: Other
Social History
Tobacco: Former smoker
Alcohol: None
Drug: None
Personal:
Living: with family
Employment: Retired
Family History
Family History: Other
Review of Systems
Review of Systems
All Other Systems: ROS reviewed and negative except as documented in HPI and ROS
Phy Exam
Physical Exam
Physical Exam:
see hpi
Course
Orders/Labs/Results
Orders:
Orders
03/14/25 22:31
Electrocardiogram (*1) Urgent
Reason for Study: Chest Pain
EKG- Treatment ONCE
03/14/25 22:46
Complete Blood Count/With Diff Urgent
Comprehensive Metabolic Panel Urgent
PTT Urgent
Prothrombin Time Urgent
Troponin I Urgent
03/15/25 01:44
CR Chest - 2 Views Urgent
Comment:
Reason For Exam: chest discomfort
03/15/25 01:45
Electrocardiogram (*1) Urgent
Reason for Study: Chest Pain
03/15/25 02:25
Troponin I Urgent
03/15/25 03:48
Add On- LAB Urgent
Tests Added?: pt/inr
Abnormal Lab Results
03/14/25
22:46
Absolute Monos (auto) 0.9 H 10^3/uL
(0.1-0.6)
Monocytes % 12.7 H %
(1.7-9.3)
Sodium 133 L mmol/L
(135-145)
BUN 23 H mg/dl
(9-20)
Glucose 112 H mg/dl
(70-99)
03/14/25 22:46
03/14/25 22:46
Vital Signs
Initial and Last Documented VS:
Initial Vital Signs
Temp Pulse Resp BP Pulse Ox
97.6 F 61 19 137/81 97
03/14/25 22:38 03/14/25 22:38 03/14/25 22:38 03/14/25 22:38 03/14/25 22:38
Last Documented Vital Signs
Temp Pulse Resp BP Pulse Ox
97.6 F 55 19 105/78 97
03/14/25 22:38 03/15/25 03:57 03/15/25 03:57 03/15/25 03:57 03/15/25 03:57
*Pulse Oximetry
SaO2: 96
Oxygen Mode of Delivery: Room air
Patient hypoxic: no
*Critical Care Note
Total Time (30-74mins, 75-104mins- exclusive of procedures): Not Applicable
ED Attending Note
-
Portions of this chart may have been created with voice recognition software.� Occasional wrong word or��sound alike� substitutions may have occurred due to the inherent limitations of voice recognition software.
Discharge Plan
Departure
Patient Disposition: Home (Routine Discharge)
Date of Disposition: 03/15/25
Time of Disposition: 03:50
Patient with high blood pressure during this ER visit?: Yes
Condition: Good
Discharge Problem:
Ecchymosis of forearm, Chest discomfort
Instructions: Chest Pain DCA Follow Up, BLOOD PRESSURE, RICE Therapy
Prescriptions:
No Action
omeprazole
20 mg PO DAILY
Multi-Vitamin
PreserVision AREDS
Brilinta 90 mg Tablet
90 mg PO BID Qty: 60 11RF
aspirin 81 mg Tablet,Chewable
81 mg PO DAILY Qty: 30 0RF
rosuvastatin 20 mg Tablet
20 mg PO QPM Qty: 30 3RF
metoprolol succinate 25 mg Tablet Extended Release 24 Hr
25 mg PO DAILY Qty: 30 3RF
Referrals:
Rell Goldberg DO [Family Provider, Family Practice]
Activity Restrictions/Additional Instructions:
Please follow up with your primary care provider.
Please follow up with your dehydrogenation operator head.
PLEASE RETURN TO THE ER SHOULD YOU DEVELOP INCREASING CHEST PAIN, SHORTNESS OF BREATH, JAW PAIN, LEFT ARM PAIN, UPPER ABDOMINAL PAIN, SHORTNESS OF BREATH, OR ANY OTHER SIGNS OR SYMPTOMS WORRISOME TO YOU.
Interventions
Interventions:
*Risk Screen - Suicide Last Done: 03/14/25 23:25
*General Assessment Last Done: 03/14/25 22:34
*Neglect/Abuse Screening Last Done: 03/14/25 23:25
*ED- Fall Risk Assessment Last Done: 03/14/25 23:25
*ED COVID-19 Vaccine History Last Done: 03/14/25 22:34
*ED Influenza Vaccine History Last Done: 03/14/25 22:34
*Nursing Disposition Last Done: 03/15/25 03:57
ED- Pulmonary Assessment Last Done: 03/14/25 23:25
ED- Cardiac Assessment Last Done: 03/14/25 23:25
Discharge Date and Time
Discharge Date/Time: 03/15/25 04:08
Print Language: HUNGARIAN
[2025-03-15 03:10] LABS: Troponin I 0.012 ng/ml
[2025-03-15 03:57] VITALS: BP 105/78
[2025-03-15 03:59] LABS: INR 0.92; PT 12.7 Sec (11.4-14.6)
== END 2025-03-15 04:08 | disposition home or self-care (01) ==
LOC: EMR 22:25
PROVIDERS: Physician Assistant; Student in an Organized Health Care Education/Training Program; EMERGENCY PHYSICIAN Student in an Organized Health Care Education/Training Program; FAMILY PHYSICIAN Student in an Organized Health Care Education/Training Program
DX: S50.12XA Contusion of left forearm, initial encounter (principal); X58.XXXA Exposure to other specified factors, initial encounter; R07.89 Other chest pain; E78.00 Pure hypercholesterolemia, unspecified; Z79.82 Long term (current) use of aspirin; Z79.02 Long term (current) use of antithrombotics/antiplatelets; Z87.891 Personal history of nicotine dependence
CPT/HCPCS: 99284; 71046; 80053; 84484; 85025; 85610; 85730; 93005

== ENCOUNTER → 2025-04-17 07:07 | Outpatient (REF) | payer OTHER, SELFPAY | LOC: HWRCS 07:07 | PROVIDERS: ATTENDING PHYSICIAN Nurse Practitioner; FAMILY PHYSICIAN Student in an Organized Health Care Education/Training Program | DX: I25.10 Atherosclerotic heart disease of native coronary artery without angina pectoris (principal); I21.19 ST elevation (STEMI) myocardial infarction involving other coronary artery of inferior wall | CPT/HCPCS: 78452; 93017; A9500 ==